=== PATIENT | male | born 1940 ===

== ENCOUNTER → 2017-12-22 | Emergency (ER) | payer OTHER ==
[~2017-12-22] VITALS: Ht 170.2 cm; Wt 117.9 kg
[~2017-12-22] MED LIST: ACTOS30 MG PO; AZOPT5 ML OP; COREG CR20 MG PO; COUMADIN6 MG PO; DIOVAN40 MG PO; GABAPENTIN400 MG PO; GLIMEPIRIDE4 MG PO; ISORDIL5 MG PO; JANUMET 50-1,1 UDTAB PO; LANTUS SOLOSTAR3 ML SQ; LASIX20 MG PO; LASIX40 MG PO; LIPITOR20 MG PO; MICRONASE1.25 MG PO; NOVOLOG100 U/M1 SQ; TENORMIN100 MG PO; ZOCOR20 MG PO
== END | disposition designated cancer center or children's hospital (05) ==
LOC: ER 14:00
DX: S72.012A Unspecified intracapsular fracture of left femur, initial encounter for closed fracture (principal); S80.02XA Contusion of left knee, initial encounter; K59.00 Constipation, unspecified; W18.09XA Striking against other object with subsequent fall, initial encounter; Y93.89 Activity, other specified; Y92.89 Other specified places as the place of occurrence of the external cause; Y99.8 Other external cause status